=== PATIENT | female | born 1945 | race Caucasian/White ===

== ENCOUNTER 2017-12-31 09:01 | Day surgery (SDC) | payer MEDICARE, OTHER, SELFPAY ==
--- NOTE | 2017-12-29 10:01 | POEE_ITS ---
History of Present Illness Chief Complaint: Progressive decreased vision, right eye Narrative: The patient is a 72-year old female with history of progressive decreased vision in both eyes at both distance and near. She has significant diminished visual acuity in her right eye with constant blurred vision. On examination she was noted to have a mild nuclear cataract with a moderate posterior subcapsular cataract in the right eye with visual acuity of 20/50. The option of cataract surgery was offered to the patient and she wished to proceed. NOTE: The Chief Complaint, HPI, Past Medical History, Past Surgical History, Family History, Social History, Medications, and complete Ophthalmic Exam with detailed Assessment and Plan have already been documented in the patient's outpatient ophthalmic record and are not covered again in detail here. PFSH Medical History Nuclear sclerotic cataract of right eye (Resolved) Posterior subcapsular age-related cataract, right eye (Resolved) Social History Smoking/Tobacco Use Status: Never Surgical History Status post cataract extraction and insertion of intraocular lens of right eye ( Chronic 12/31/17) Meds Home Medications Medication Instructions Recorded Confirmed Type ascorbic acid (vitamin C) [Vitamin 500 mg PO DAILY 12/26/17 12/31/17 History C] aspirin [Aspir-81] 1 tab PO DAILY 12/26/17 12/31/17 History atorvastatin 20 mg PO HS 12/26/17 12/31/17 History cholecalciferol (vitamin D3) 1,000 unit PO DAILY 12/26/17 12/31/17 History [Vitamin D3] glucosamine sulfate [Glucosamine] 500 mg PO DAILY 12/26/17 12/31/17 History levothyroxine 25 mcg PO DAILY 12/26/17 12/31/17 History magnesium chloride 64 mg PO BID 12/26/17 12/31/17 History omega 8-kkj-uwj-fish oil 1 cap PO DAILY 12/26/17 12/31/17 History omeprazole 20 mg PO DAILY 12/26/17 12/31/17 History vitamin B complex [B-Complex] 1 tab PO DAILY 12/26/17 12/31/17 History Allergies Allergy/AdvReac Type Severity Reaction Status Date / Time ciprofloxacin [From Cipro] Allergy Unknown Skin Rash Verified 12/31/17 09:17 nitrofurantoin Allergy Unknown Skin Rash Verified 12/31/17 09:17 [From Macrobid] Exam OCULAR EXAM:: Visual acuity at distance: Best corrected right eye 20/40, left eye 20/20 Pupils: Pupils equal, round, and reactive without afferent pupillary defect IOP: 16 OD 17 OS Extraocular Motility: Normal Pertinent Slit Lamp Findings: Significant for pupils dilating to 7 mm OU. 1+ nuclear cataract OU. A 2+ posterior subcapsular cataract is present OD, denser inferiorly. In the left eye there is a 1+ posterior subcapsular cataract inferiorly, not in the visual axis. Dilated Funduscopic Examination: Disc cupping is 0.3 OU with good color. The optic nerves have good perfusion and normal color. The retinal vasculature is normal without significant tortuosity or abnormality. The maculas are normal in appearance with normal contour and foveal reflex appropriate for age. The peripheral retina and vitreous are normal. BRIGHTNESS ACUITY TESTING (BAT):: Off right eye 20/50 Low: 20/50 Medium: 20/70 High: 20/300 Assessment and Plan (1) Posterior subcapsular age-related cataract, right eye: Current visit: No Status: Resolved Assessment: Visually significant cataract, right eye. Plan: Cataract extraction with intraocular lens implantation, right eye (2) Nuclear sclerotic cataract of right eye: Current visit: No Status: Resolved Assessment: Visually significant cataract, right eye. Plan: Cataract extraction with intraocular lens implantation, right eye Note: NOTE:: The details of the planned surgery, including the risks, indications, limitations,expectations,outcome and possible complications were explained to the patient. The patient understands the complications including, but not limited to: infection, hemorrhage, posterior dislocation of the lens or nuclear fragments which may require the intervention of a vitreoretinal surgeon, possible loss of the eye, or from anesthetic complications. The patient has been made aware of the option of not having surgery, that vision following surgery may not be equal to that prior to surgery, and that the planned surgery may not achieve the intended results. Following this discussion, which the patient appeared to understand, the patient wishes to proceed with cataract surgery with lens implantation of the affected eye to improve and maximize vision.
[2017-12-31 09:20] VITALS: BP 135/56; PULSE 73; RESP 16; TEMP 36.8; O2SAT 95
[2017-12-31] MEDS: Povidone-Iodine Ophth 30 ML BTL (11:22)
[2017-12-31] MEDS: Lidocaine 2% Jelly 6 ML SYR (11:22)
[2017-12-31] MEDS: Lidocaine 1% Pres-Free 5 ML VIAL (11:29)
[2017-12-31] MEDS: Balanced Salt Soln.-PLUS 500 ML BAG (11:30)
[2017-12-31] MEDS: Trypan Blue 0.06% 0.5 ML SYR (11:32)
--- NOTE | 2017-12-31 11:54 | W.PM.DSUDISC ---
Discharge Plan Discharge Details Reason For Visit: CATARACT OD Attending Provider: Wade Mendez Primary Care Provider: SAROJ SWENSON Widen Meds and New Rx's Prescriptions: No Action atorvastatin 20 mg Tablet 20 mg PO HS RF: 0 glucosamine sulfate [Glucosamine] 500 mg Tablet 500 mg PO DAILY RF: 0 aspirin [Aspir-81] 81 mg Tablet,Delayed Release (Dr/Ec) 1 tab PO DAILY RF: 0 levothyroxine 25 mcg Tablet 25 mcg PO DAILY RF: 0 ascorbic acid (vitamin C) [Vitamin C] 500 mg Tablet 500 mg PO DAILY RF: 0 omeprazole 20 mg Capsule,Delayed Release(Dr/Ec) 20 mg PO DAILY RF: 0 cholecalciferol (vitamin D3) [Vitamin D3] 1,000 unit Capsule 1,000 unit PO DAILY RF: 0 magnesium chloride 64 mg Tablet,Delayed Release (Dr/Ec) 64 mg PO BID RF: 0 vitamin B complex [B-Complex] Tablet 1 tab PO DAILY RF: 0 omega 2-rgr-och-fish oil 300-1,000 mg Capsule 1 cap PO DAILY RF: 0 Discharge Instructions Stand Alone Forms: Post-op Topical Cataract, Jamila Card (DSU) DS: Diagnosis Discharge Diagnosis (1) Posterior subcapsular age-related cataract, right eye: Status: Resolved (2) Nuclear sclerotic cataract of right eye: Status: Resolved (3) Status post cataract extraction and insertion of intraocular lens of right eye: Status: Chronic
--- NOTE | 2017-12-31 11:56 | W.PM.OP ---
Date of service: 12/31/17 Time of Service: 11:56 Operative Note DATE OF PROCEDURE: 12/31/17 PRE-OP DIAGNOSIS: Cataract, right eye, with poor red reflex PROCEDURE: Cataract extraction using phacoemulsification with intraocular lens implantation, right eye, using capsular staining with Vision Blue SURGEON: Wade Mendez ANESTHESIA: MAC (with local sub-tenon's anesthetic injection) PATHOLOGY: none sent COMPLICATIONS: None Patient was transported to: same day Patient's condition: stable Implants: Armando and Armando / [employer] Tecnis [id number] Indications: Progressive visual loss due to cataract, right eye Procedure Description: CATARACT SURGERY OPERATIVE REPORT PREOPERATIVE DIAGNOSIS: 1. Nuclear cataract, with dense posterior subcapsular cataract, right eye 2. Poor red reflex secondary to #1 POSTOPERATIVE DIAGNOSIS: Same OPERATION: 1. Cataract extraction using phacoemulsification with posterior chamber intraocular lens implant, right eye. 2. Capsular staining with Vision Blue IOL: IOL Commercial Appraiser/Model: Armando & Armando / SUBHA Tecnis ZCB00 IOL Power: + 22.5 diopters IOL Serial Number: [id number] Optic Diameter: 6.0mm Haptic/Overall Diameter: 13.0mm PHACO INFO: Derian marker.tourion Vision System with OZil and Active Fluidics Cumulative Dispersed Energy (CDE): 8.57 seconds SURGEON: Wade Mendez MD, PAULINE ANESTHESIA: Monitored Anesthesia Care (MAC), with local sub-tenon's anesthetic infiltration COMPLICATIONS: None SPECIMENS: None INDICATIONS FOR PROCEDURE: The patient is a 72-year-old female with history of progressive decreased vision in her right eye. She is noted to have a moderate nuclear cataract with dense posterior subcapsular cataract in her right eye. The option of cataract surgery was offered to the patient and she wished to proceed. PROCEDURE: The correct surgical eye was identified and marked as the right eye and the pupil was dilated in the preoperative area using mydriatics, cycloplegics, and NSAIDS (except in aspirin allergic patients). The dilated pupil size was 8.0 mm. Oral sedation was administered in the form of an Imprimis MKO Melt (midazolam 3mg/ketamine 25mg/ondansetron 2mg). The patient was brought to the operating room where cardiopulmonary monitoring was instituted and surgical time-out was performed, confirming the correct operative eye and IOL power. Topical anesthesia was administered and ophthalmic povidone-iodine 5% was instilled into the conjunctival fornices. Lidocaine gel was applied to the cornea and the jennifer-ocular area was prepped with Betadine 10% solution and draped in the usual sterile fashion for intraocular surgery. Steri-strips were used to cover the lashes and lid margins and an adhesive eye drape was placed. Care was taken to isolate the lashes and lid margins under the Steri-strips and adhesive eye drape. A lid speculum was placed between the lids of the operative eye and the Terrance-Brenda operating microscope was maneuvered into position. Venus scissors were then used to make a conjunctival buttonhole approximately 6mm posterior to the limbus in the inferonasal quadrant. Blunt dissection was carried out to expose bare sclera, and a blunt-tipped sub-tenon?s anesthesia cannula was introduced and passed posteriorly along the globe where non-preserved plain lidocaine was injected into posterior sub-Tenon?s space. A sideport knife was used to make a paracentesis port at the 7:00 position. Air was injected into the anterior chamber, followed by Vision Blue, which was painted over the anterior capsule and then irrigated out with BSS. The anterior chamber was filled with Healon GV. A 2.4mm keratome knife was used to create a half-thickness groove at the limbus and then to construct a three-plane near-clear corneal tunnel extending 2.0mm into clear cornea at the 10:00 position. A flap was raised on the anterior capsule and capsulorhexis forceps were used to complete a continuous curvilinear capsulorhexis of 5.0 mm. The capsule was noted to be quite thin. Balanced salt solution was then used to perform cortical cleaving hydrodissection and nuclear hydrodelineation until the lens could be freely rotated within the capsular bag. The lens nucleus was then disassembled and removed within the capsular bag and iris plane using phacoemulsification. Residual cortical material was removed using the 45-degree angled silicone I/A tip with 0.3mm port. The posterior capsule was carefully polished to remove as much residual lens epithelial cells as safely possible. The capsular bag was then inflated and the anterior chamber deepened with viscoelastic. The lens implant described above was inserted into the capsular bag using the SUBHA [place] Injector. A Kuglen hook was used to dial the IOL into position. Residual viscoelastic was then removed first from posterior to the IOL, then from the anterior chamber using the I/A handpiece. The lens implant was noted to center nicely within the capsular bag. The incisions were stromally hydrated, and the anterior chamber was reformed using BSS. Then 0.4cc of moxifloxacin 1.5mg/ml were injected into the capsular bag and anterior chamber. The incisions were checked with a Weck spear and found to be secure. Several drops of ophthalmic povidone-iodine 5% were then applied to the eye followed by two drops of Imprimis combination moxifloxacin/dexamethasone solution. The drapes were removed and a clear plastic protective eye shield was placed over the eye. The patient was then returned to Same Day Surgery in stable condition.
--- NOTE | 2017-12-31 11:59 | ROE_ITS ---
Date of service: 12/31/17 Time of Service: 11:56 Operative Note DATE OF PROCEDURE: 12/31/17 PRE-OP DIAGNOSIS: Cataract, right eye, with poor red reflex PROCEDURE: Cataract extraction using phacoemulsification with intraocular lens implantation, right eye, using capsular staining with Vision Blue SURGEON: Wade Mendez ANESTHESIA: MAC (with local sub-tenon's anesthetic injection) PATHOLOGY: none sent COMPLICATIONS: None Patient was transported to: same day Patient's condition: stable Implants: Armando and Armando / [employer] Opt[employer] Tecnis [id number] Indications: Progressive visual loss due to cataract, right eye Procedure Description: CATARACT SURGERY OPERATIVE REPORT PREOPERATIVE DIAGNOSIS: 1. Nuclear cataract, with dense posterior subcapsular cataract, right eye 2. Poor red reflex secondary to #1 POSTOPERATIVE DIAGNOSIS: Same OPERATION: 1. Cataract extraction using phacoemulsification with posterior chamber intraocular lens implant, right eye. 2. Capsular staining with Vision Blue IOL: IOL Traffic Controller Cable/Model: Armando & Armando / SUBHA Tecnis ZCB00 IOL Power: + 22.5 diopters IOL Serial Number: [id number] Optic Diameter: 6.0mm Haptic/Overall Diameter: 13.0mm PHACO INFO: Derian Lumetaurion Vision System with OZil and Active Fluidics Cumulative Dispersed Energy (CDE): 8.57 seconds SURGEON: Wade Mendez MD, PAULINE ANESTHESIA: Monitored Anesthesia Care (MAC), with local sub-tenon's anesthetic infiltration COMPLICATIONS: None SPECIMENS: None INDICATIONS FOR PROCEDURE: The patient is a 72-year-old female with history of progressive decreased vision in her right eye. She is noted to have a moderate nuclear cataract with dense posterior subcapsular cataract in her right eye. The option of cataract surgery was offered to the patient and she wished to proceed. PROCEDURE: The correct surgical eye was identified and marked as the right eye and the pupil was dilated in the preoperative area using mydriatics, cycloplegics, and NSAIDS (except in aspirin allergic patients). The dilated pupil size was 8.0 mm. Oral sedation was administered in the form of an Imprimis MKO Melt (midazolam 3mg/ketamine 25mg/ondansetron 2mg). The patient was brought to the operating room where cardiopulmonary monitoring was instituted and surgical time-out was performed, confirming the correct operative eye and IOL power. Topical anesthesia was administered and ophthalmic povidone-iodine 5% was instilled into the conjunctival fornices. Lidocaine gel was applied to the cornea and the jennifer-ocular area was prepped with Betadine 10% solution and draped in the usual sterile fashion for intraocular surgery. Steri-strips were used to cover the lashes and lid margins and an adhesive eye drape was placed. Care was taken to isolate the lashes and lid margins under the Steri-strips and adhesive eye drape. A lid speculum was placed between the lids of the operative eye and the Terrance-Brenda operating microscope was maneuvered into position. Venus scissors were then used to make a conjunctival buttonhole approximately 6mm posterior to the limbus in the inferonasal quadrant. Blunt dissection was carried out to expose bare sclera, and a blunt-tipped sub-tenon? s anesthesia cannula was introduced and passed posteriorly along the globe where non-preserved plain lidocaine was injected into posterior sub-Tenon?s space. A sideport knife was used to make a paracentesis port at the 7:00 position. Air was injected into the anterior chamber, followed by Vision Blue, which was painted over the anterior capsule and then irrigated out with BSS. The anterior chamber was filled with Healon GV. A 2.4mm keratome knife was used to create a half-thickness groove at the limbus and then to construct a three-plane near-clear corneal tunnel extending 2.0mm into clear cornea at the 10:00 position. A flap was raised on the anterior capsule and capsulorhexis forceps were used to complete a continuous curvilinear capsulorhexis of 5.0 mm. The capsule was noted to be quite thin. Balanced salt solution was then used to perform cortical cleaving hydrodissection and nuclear hydrodelineation until the lens could be freely rotated within the capsular bag. The lens nucleus was then disassembled and removed within the capsular bag and iris plane using phacoemulsification. Residual cortical material was removed using the 45-degree angled silicone I/A tip with 0.3mm port. The posterior capsule was carefully polished to remove as much residual lens epithelial cells as safely possible. The capsular bag was then inflated and the anterior chamber deepened with viscoelastic. The lens implant described above was inserted into the capsular bag using the SUBHA [place] Injector. A Kuglen hook was used to dial the IOL into position. Residual viscoelastic was then removed first from posterior to the IOL, then from the anterior chamber using the I/A handpiece. The lens implant was noted to center nicely within the capsular bag. The incisions were stromally hydrated , and the anterior chamber was reformed using BSS. Then 0.4cc of moxifloxacin 1.5mg/ml were injected into the capsular bag and anterior chamber. The incisions were checked with a Weck spear and found to be secure. Several drops of ophthalmic povidone-iodine 5% were then applied to the eye followed by two drops of Imprimis combination moxifloxacin/dexamethasone solution. The drapes were removed and a clear plastic protective eye shield was placed over the eye. The patient was then returned to Same Day Surgery in stable condition.
[2017-12-31 12:23] VITALS: BP 123/64; PULSE 68; RESP 20; TEMP 36.8; O2SAT 95
== END 2017-12-31 12:25 | disposition home or self-care (01) ==
LOC: SUR 09:02
PROVIDERS: PCP Family Medicine; Visit Provider Ophthalmology
PROC: (CPT 66982; principal; 2017-12-31 12:30)
DX: H25.11 Age-related nuclear cataract, right eye (principal); H25.041 Posterior subcapsular polar age-related cataract, right eye; H35.89 Other specified retinal disorders; K21.9 Gastro-esophageal reflux disease without esophagitis
CPT/HCPCS: 66982; V2632